=== PATIENT | female | born 1960 | race Caucasian/White ===

== ENCOUNTER 2016-10-20 14:11 | Emergency (ER) | payer OTHER ==
[~2016-10-20] VITALS: Ht 170.2 cm; Wt 90.0 kg
[~2016-10-20 14:11] MED LIST: DAPA1TAB2 PO; LOVA20TA PO; METF500 PO; VICT18IN SQ
[2016-10-20 14:20] VITALS: BP 122/77; PULSE 107; RESP 19; TEMP 98.1; O2SAT 94
[2016-10-20] MEDS ORDERED: GABA600T PO (14:29)
[2016-10-20] MEDS ORDERED: SIMV20TA PO (14:29)
[2016-10-20] MEDS ORDERED: EMPA1TAB3 PO (14:29)
[2016-10-20] MEDS ORDERED: METF1000 PO (14:29)
[2016-10-20] MEDS ORDERED: LISI10TA3 PO (14:29)
[2016-10-20] MEDS ORDERED: WELLTAB39 PO (14:29)
[2016-10-20] MEDS ORDERED: REPA1TAB PO (14:29)
[2016-10-20] MEDS ORDERED: ALBI1INJ SQ (14:29)
--- NOTE | 2016-10-20 14:40 | PD ---
HPI Chief Complaint: Laceration/Skin Injury Time Seen by Provider: 14:40 Travel History International Travel<30 days: No Contact w/Intl Traveler<30days: No Traveled to known affect area: No History of Present Illness HPI 55-year-old female with history of diabetes presents to the emergency department for evaluation of right great toe injury. Patient states that she was about to paint something in her house and the stepstool accidentally fell onto her right great toe. States that she has a small cut that was bleeding and has pain in the toe. States that she has only a small nailbed in the right great toe secondary to a previous surgery to remove the toenail. States that the cut is just above her regular nail. States her tetanus vaccination is up-to -date. No other complaints. PFSH Past Medical History Depression: Yes High Cholesterol: Yes Diabetes: Yes (TYPE 2) Patient Takes Glucophage: Yes Diminished Hearing: No GERD: Yes Hypertension: Yes Respiratory: Yes (SEASONAL ALLERGIES) Immunizations Current: Yes Thyroid Disease: Yes Tetanus Vaccination: < 5 Years Influenza Vaccination: No ?: Not Past Surgical History Hysterectomy: Yes Social History Alcohol Use: Yes (rare) Tobacco Use: Yes (1 PPD) Substance Use: No Allergies-Medications (Allergen,Severity, Reaction): Coded Allergies: No Known Allergies (Verified , 10/20/16) Reported Meds & Prescriptions Reported Meds & Active Scripts Active Keflex (Cephalexin) 500 Mg Cap 500 Mg PO Q8H 7 Days Reported Tanzeum 4-Pack Inj (Albiglutide) 30 Mg Pfpen 30 Mg SQ Q7D Wellbutrin Xl 24 HR (Bupropion HCl) 300 Mg Tab 300 Mg PO HS Metformin (Metformin HCl) 1,000 Mg Tab 1,500 Mg PO HS With a meal Simvastatin 20 Mg Tab 20 Mg PO HS Repaglinide 0.5 Mg Tab 0.5 Mg PO TIDAC Jardiance (Empagliflozin) 25 Mg Tab 25 Mg PO DAILY Gabapentin 600 Mg Tab 600 Mg PO HS Lisinopril 10 Mg Tab 10 Mg PO EVERY OTHER DAY Review of Systems Except as stated in HPI: all other systems reviewed are Neg Physical Exam Narrative GENERAL: Well-nourished and well-developed patient in no acute distress who is nontoxic appearing. SKIN: Warm and dry. HEAD: Normocephalic and atraumatic. EYES: No injection, drainage, or hyphema noted. PERRLA. EOMI. ENT: No nasal drainage noted. Oropharynx is clear. NECK: Supple and the trachea is midline. CARDIOVASCULAR: Regular rate and rhythm. RESPIRATORY: Breath sounds are equal bilaterally with no accessory muscle use, wheezing, rhonchi, or crackles. MUSCULOSKELETAL: Right great toe with 0.5 cm superficial laceration just above the nail. Mild tenderness to palpation. Full range of motion in the toe. No obvious deformities, swelling, cyanosis, or ecchymosis is present throughout the upper and lower extremities. Patient has full range of motion without any signs of neurovascular compromise. NEUROLOGICAL: Awake, alert, and oriented. Normal speech and gait. Cranial nerves are grossly intact. Data Data Last Documented VS Vital Signs Date Time Temp Pulse Resp B/P Pulse Ox O2 Delivery O2 Flow Rate FiO2 10/20/16 14:20 98.1 107 19 122/77 94 Orders Toe (Min 2vws) (10/20/16 14:39) Wound Care (10/20/16 15:04) MDM Medical Decision Making Medical Screen Exam Complete: Yes Emergency Medical Condition: Yes Differential Diagnosis Toe abrasion versus contusion versus sprain Narrative Course 55-year-old female presents to the emergency department for evaluation of right great toe injury. Patient is afebrile, vital signs are stable. She is a small superficial laceration just above the nail and some mild bruising. X-ray imaging has been ordered and is pending. Her tetanus vaccination is up-to-date. X-ray of the right toe is negative for any acute abnormality. The patient's toe is cleaned, ointment and sterile dressing is applied. Discussed proper wound care techniques. She'll be placed on antibiotics prophylactically. Advised follow-up with her PCP. Diagnosis Primary Impression: Superficial laceration of skin Additional Impression: Toe contusion Qualified Code: S90.111A - Contusion of right great toe without damage to nail , initial encounter Referrals: Primary Care Physician Patient Instructions: Abrasion (ED), Contusion in Adults (ED), General Instructions Additional Instructions: Keep area clean and dry. Wash daily with soap and water. Apply topical antibiotic ointment. Take medications as prescribed with food and a full glass of water. Follow-up with your Primary Care Physician. Return to the ED for any acute worsening of symptoms. Med/Other Pt SpecificInfo: Prescription(s) given Scripts Cephalexin (Keflex)500 Mg [id number] Mg PO Q8H 7 Days Ref 0 Prov:Tyler Coyne MD 10/20/16 Disposition: 01 DISCHARGE HOME Condition: Stable Meaghan Allen Oct 20, 2016 14:40
--- NOTE | 2016-10-20 15:01 | RADHPO ---
EXAM DATE/TIME: 10/20/2016 14:42 [facility] COMPARISON: No previous studies available for comparison. INDICATIONS : Right great toe pain/laceration post ladder falling on it. MEDICAL HISTORY : Hypertension. Hypercholesterolemia. Gastroesophageal reflux disease. Thyroid disease. Diabetic. SURGICAL HISTORY : Hysterectomy. Right great toe nail & bone spur removed. ENCOUNTER: Initial ACUITY: 1 day PAIN SCORE: 5/10 LOCATION: Right great toe FINDINGS: Examination of the first digit of the right foot demonstrates no evidence of fracture or dislocation. No radiopaque foreign bodies are seen. The soft tissues are intact. CONCLUSION: Unremarkable examination of the right first toe. Eric Pelletier MD on October 20, 2016 at 14:59 Board Certified Radiologist. This report was verified electronically.
[2016-10-20] MEDS ORDERED: CEPH-460 PO (15:04)
== END 2016-10-20 15:20 | disposition home or self-care (01) ==
LOC: PHEFT 14:11
DX: S90.111A Contusion of right great toe without damage to nail, initial encounter (principal); F32.9 Major depressive disorder, single episode, unspecified; E78.00 Pure hypercholesterolemia, unspecified; E11.9 Type 2 diabetes mellitus without complications; I10 Essential (primary) hypertension; F17.210 Nicotine dependence, cigarettes, uncomplicated; Z79.4 Long term (current) use of insulin; S91.111A Laceration without foreign body of right great toe without damage to nail, initial encounter; W22.8XXA Striking against or struck by other objects, initial encounter; Y93.H3 Activity, building and construction; Y92.019 Unspecified place in single-family (private) house as the place of occurrence of the external cause; Y99.8 Other external cause status
CPT/HCPCS: 73660; 99283